=== PATIENT | male | born 1980 | race American Indian/Alaskan Native ===

== ENCOUNTER 2016-09-25 10:18 | Emergency (ER) | payer SELFPAY ==
[2016-09-25] MEDS ORDERED: DUONEB 0.5 MG-3 MG/3 ML SOLN IH ONE (12:15)
[2016-09-25] MEDS ORDERED: NACL 0.9% 1000 ML 1,000 ML IV ONE (12:16)
[2016-09-25] MEDS ORDERED: MAGNESIUM SULFATE 2GM/50ML 2 GM/50 ML BAG IV ONE (12:16)
--- NOTE | 2016-09-25 12:19 | Emergency Department Report ---
ED Asthma HPI - General Chief Complaint: Adult Asthma Stated Complaint: ASTHMA Time Seen by Provider: 09/25/16 12:10 Source: patient Mode of arrival: Stretcher Limitations: No Limitations - History of Present Illness Initial Comments: Patient is somewhat disinterested in providing much historical information. He lives in the lateral decubitus position with his eyes closed. Upon awakening he states he is still wheezing. He received 2 albuterol treatments and Solu- Medrol and route per jig worker. He does have some persistent wheezing. He denies chest pain. He states he's had some yellow productive cough. Patient states his last admission for asthma was within the last 2 years at this facility. MD Complaint: "asthma attack" -: unknown Severity: moderate Context: recent URI Associated Symptoms: productive cough Treatments Prior to Arrival: other (ran out of meds) - Related Data Current Asthma Therapy: none Previous Rx's Medication Instructions Recorded Last Taken Type amLODIPine [Norvasc] 5 mg PO DAILY #30 tab 11/08/13 06/30/15 10:00 Rx 5mg Apixaban [Eliquis] 10 mg PO BID 7 Days 07/08/15 Unknown Rx Insulin NPH/Regular [NovoLIN 70/30] 40 unit SUB-Q QDDIAB 30 Days 07/08/15 Unknown Rx Insulin NPH/Regular [NovoLIN 70/30] 40 unit SUB-Q QPMDIAB 30 Days 07/08/15 Unknown Rx predniSONE [Deltasone] 10 mg PO QDAY #4 tablet 07/08/15 Unknown Rx ALBUTEROL NEB's [Proventil 0.083% 1 neb IH Q4H PRN #60 nebu 09/25/16 Unknown Rx NEBS] Albuterol Sulfate [Ventolin HFA] 2 puff IH Q4H PRN #1 hfa.aer.ad 09/25/16 Unknown Rx Apixaban [Eliquis] 5 mg PO BID #42 tablet 09/25/16 Unknown Rx Azithromycin [Zithromax Z-DOUG] 250 mg PO DAILY #6 tablet 09/25/16 Unknown Rx predniSONE [Deltasone] 20 mg PO QDAY #6 tab 09/25/16 Unknown Rx Allergies Allergy/AdvReac Type Severity Reaction Status Date / Time No Known Allergies Allergy Unverified 11/07/13 16:14 ED Review of Systems ROS: Stated complaint: ASTHMA Other details as noted in HPI Constitutional: denies: chills, fever Eyes: denies: eye pain, eye discharge, vision change ENT: denies: ear pain, throat pain Respiratory: cough, shortness of breath, wheezing Cardiovascular: denies: chest pain, palpitations Endocrine: no symptoms reported Gastrointestinal: denies: abdominal pain, nausea, diarrhea Genitourinary: denies: urgency, dysuria Musculoskeletal: denies: back pain, joint swelling, arthralgia Skin: denies: rash, lesions Neurological: denies: headache, weakness, paresthesias Psychiatric: denies: anxiety, depression Hematological/Lymphatic: denies: easy bleeding, easy bruising ED Past Medical Hx - Past Medical History Hx Hypertension: Yes Hx Heart Attack/AMI: No Hx Congestive Heart Failure: No Hx Diabetes: Yes Hx Deep Vein Thrombosis: No Hx Asthma: Yes Hx COPD: No - Surgical History Hx Coronary Stent: No - Social History Smoking Status: Current Every Day Smoker Substance Use Type: None - Medications Home Medications: Home Medications Medication Instructions Recorded Confirmed Last Taken Type amLODIPine [Norvasc] 5 mg PO DAILY #30 tab 11/08/13 06/30/15 06/30/15 10:00 Rx 5mg Apixaban [Eliquis] 10 mg PO BID 7 Days 07/08/15 Unknown Rx Insulin NPH/Regular [NovoLIN 70/30] 40 unit SUB-Q QDDIAB 30 Days 07/08/15 Unknown Rx Insulin NPH/Regular [NovoLIN 70/30] 40 unit SUB-Q QPMDIAB 30 Days 07/08/1506/30 Unknown Rx predniSONE [Deltasone] 10 mg PO QDAY #4 tablet 07/08/15 Unknown Rx ALBUTEROL NEB's [Proventil 0.083% 1 neb IH Q4H PRN #60 nebu 09/25/16 Unknown Rx NEBS] Albuterol Sulfate [Ventolin HFA] 2 puff IH Q4H PRN #1 hfa.aer.ad 09/25/16 Unknown Rx Apixaban [Eliquis] 5 mg PO BID #42 tablet 09/25/16 Unknown Rx Azithromycin [Zithromax Z-DOUG] 250 mg PO DAILY #6 tablet 09/25/16 Unknown Rx predniSONE [Deltasone] 20 mg PO QDAY #6 tab 09/25/16 Unknown Rx ED Physical Exam - General Limitations: No Limitations General appearance: alert, in no apparent distress - Head Head exam: Present: atraumatic, normocephalic - Eye Eye exam: Present: normal appearance. Absent: scleral icterus - ENT ENT exam: Present: mucous membranes moist - Neck Neck exam: Present: normal inspection - Respiratory Respiratory exam: Present: wheezes (bilateral wheezing), other (pulse oximetry 93% on room air). Absent: respiratory distress, accessory muscle use - Cardiovascular Cardiovascular Exam: Present: regular rate, normal rhythm. Absent: systolic murmur, diastolic murmur, rubs, gallop - GI/Abdominal GI/Abdominal exam: Present: soft, normal bowel sounds. Absent: distended, tenderness, guarding, rebound - Rectal Rectal exam: Present: deferred - Extremities Exam Extremities exam: Present: normal inspection - Back Exam Back exam: Present: normal inspection - Neurological Exam Neurological exam: Present: oriented X3, CN II-XII intact. Absent: motor sensory deficit - Psychiatric Psychiatric exam: Present: flat affect. Absent: normal mood (lethargic) - Skin Skin exam: Present: warm, dry, intact, normal color. Absent: rash ED Course Vital Signs 09/25/16 09/25/16 09/25/16 11:13 12:24 12:40 Temperature 98.7 F Pulse Rate 91 H Pulse Rate [ 91 H 90 Anterior Bilateral Throughout] Respiratory 18 Rate Respiratory 16 18 Rate [Anterior Bilateral Throughout] Blood Pressure 152/95 O2 Sat by Pulse 97 Oximetry 09/25/16 13:11 Temperature Pulse Rate Pulse Rate [ Anterior Bilateral Throughout] Respiratory 18 Rate Respiratory Rate [Anterior Bilateral Throughout] Blood Pressure O2 Sat by Pulse Oximetry - Reevaluation(s) Reevaluation #1: Patient is resting comfortably. He states he is ready for discharge. He's had no leg pain or swelling. He does not complain of any chest pain. He was out of his asthma medicine and his asthma exacerbated. I don't think there is any indication to rule out pulmonary embolism here at this point. I asked the patient if he ever followed up on his pulmonary embolism in June 2015. It appears he did go to [facility]. He states he took Eloquis only for "some weeks". 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 I decided to give him a prescription for Eliquis. He should follow-up with the [facility] for evaluation of his current problem as well as how long he should remain on the Eliquis. 09/25/16 14:26 09/25/16 14:28 ED Medical Decision Making - Lab Data Result diagrams: 09/25/16 12:15 09/25/16 12:15 Laboratory Results - last 24 hr 09/25/16 09/25/16 12:15 12:15 WBC 11.1 H RBC 4.96 Hgb 14.1 Hct 42.6 MCV 86 MCH 28 MCHC 33 RDW 13.1 L Plt Count 148 Add Manual Diff Complete Total Counted 100 Band Neutrophils % 2.0 Lymphocytes % (Manual) 1.0 L Reactive Lymphs % (Man) 0 Monocytes % (Manual) 2.0 Eosinophils % (Manual) 0 Metamyelocytes % 0 Myelocytes % 0 Promyelocytes % 0 Blast Cells % 0 Nucleated RBC % Not Reportable Seg Neutrophils # Man 10.5 H Band Neutrophils # 0.2 Lymphocytes # (Manual) 0.1 L Abs React Lymphs (Man) 0.0 Monocytes # (Manual) 0.2 Eosinophils # (Manual) 0.0 Basophils # (Manual) 0.0 Metamyelocytes # 0.0 Myelocytes # 0.0 Promyelocytes # 0.0 Blast Cells # 0.0 WBC Morphology Not Reportable Hypersegmented Neuts Not Reportable Hyposegmented Neuts Not Reportable Hypogranular Neuts Not Reportable Smudge Cells Not Reportable Toxic Granulation Not Reportable Toxic Vacuolation Not Reportable Dohle Bodies Not Reportable Pelger-Huet Anomaly Not Reportable Molina Rods Not Reportable Platelet Estimate Cons Clumped Platelets Not Reportable Plt Clumps, EDTA Not Reportable Large Platelets Not Reportable Giant Platelets Rare Platelet Satelliting Not Reportable Plt Morphology Comment Not Reportable RBC Morphology Not Reportable Dimorphic RBCs Not Reportable Polychromasia Not Reportable Hypochromasia Not Reportable Poikilocytosis Not Reportable Anisocytosis Not Reportable Microcytosis Not Reportable Macrocytosis Not Reportable Spherocytes Not Reportable Pappenheimer Bodies Not Reportable Sickle Cells Not Reportable Target Cells Not Reportable Tear Drop Cells Not Reportable Ovalocytes Not Reportable Helmet Cells Not Reportable [place] Bodies Not Reportable [place] Rings Not Reportable [place] Cells Not Reportable Bite Cells Not Reportable Crenated Cell Not Reportable Elliptocytes Not Reportable Acanthocytes (Spur) Not Reportable Rouleaux Not Reportable Hemoglobin C Crystals Not Reportable Schistocytes Not Reportable Malaria parasites Not Reportable Amando Bodies Not Reportable Hem Pathologist Commnt No Sodium 136 L Potassium 3.5 L Chloride 100.3 Carbon Dioxide 20 L Anion Gap 19 BUN 9 Creatinine 0.9 Estimated GFR > 60 BUN/Creatinine Ratio 10.00 Glucose 195 H Calcium 8.7 - Radiology Data interpreted by me: CXR NAF Critical care attestation.: If time is entered above; I have spent that time in minutes in the direct care of this critically ill patient, excluding procedure time. ED Disposition Clinical Impression: History of pulmonary embolism Asthma exacerbation Qualifiers: Asthma severity: moderate persistent Qualified Code(s): J45.41 - Moderate persistent asthma with (acute) exacerbation Acute bronchitis Qualifiers: Bronchitis organism: unspecified organism Qualified Code(s): J20.9 - Acute bronchitis, unspecified Disposition: DISCHARGED TO HOME OR SELFCARE Is pt being admited?: No Does the pt Need Aspirin: No Condition: Stable Instructions: Acute Bronchitis (ED), Asthma (ED) Additional Instructions: As far as I can tell you should still be on the Eliquis. Therefore I am going to repeat prescribe it. I have encouraged the patient to probably follow up on his medical care with [facility]. He is discharged in stable condition. I'mhere on 20 mg of prednisone a day. This may elevate her blood sugar. He must check your blood sugar and treated appropriately with your insulin. You have complex medical problems that require close follow-up. I'll give you the information for [facility]. Return any acute change or problems Prescriptions: ALBUTEROL NEB's [Proventil 0.083% NEBS] 1 neb IH Q4H PRN #60 nebu PRN Reason: Wheezing Albuterol Sulfate [Ventolin HFA] 2 puff IH Q4H PRN #1 hfa.aer.ad PRN Reason: Wheezing Apixaban [Eliquis] 5 mg PO BID #42 tablet Azithromycin [Zithromax Z-DOUG] 250 mg PO DAILY #6 tablet predniSONE [Deltasone] 20 mg PO QDAY #6 tab Referrals: PRIMARY CARE, [Primary Care Provider] - 3-5 Days [facility] [Provider Group] - [place] Time of Disposition: 14:45
[2016-09-25 12:28] LABS: Hematocrit 42.6 % (35.5-45.6); Hemoglobin 14.1 gm/dl (11.8-15.2); Mean Corpuscular HGB Conc 33 % (32-34); Mean Corpuscular Hemoglobin 28 pg (28-32); Mean Corpuscular Volume 86 fl (84-94); Platelet Count 148 K/mm3 (140-440); Red Blood Count 4.96 M/mm3 (3.65-5.03); Red Cell Distribution Width 13.1 % (13.2-15.2); White Blood Count 11.1 K/mm3 (4.5-11.0)
[2016-09-25 12:39] LABS: Anion Gap 19 mmol/L; Blood Urea Nitrogen 9 mg/dL (9-20); Calcium 8.7 mg/dL (8.4-10.2); Carbon Dioxide 20 mmol/L (22-30); Chloride 100.3 mmol/L (98-107); Glucose 195 mg/dL (75-100); Potassium 3.5 mmol/L (3.6-5.0); Sodium 136 mmol/L (137-145)
--- NOTE | 2016-09-25 13:01 | XRay Report ---
Single view chest: Compared to 07/08/15. History: Cough. Findings: Normal cardiomediastinal silhouette. Trachea is midline. No consolidation, pneumothorax or pleural effusion. Impression: No acute cardiopulmonary findings.
[2016-09-25 13:41] LABS: Blastocytes % (Manual) 0 %
[2016-09-25 13:42] LABS: Diff Status Complete; Eosinophils % (Manual) 0 % (0.0-4.3)
[2016-09-25 13:43] LABS: Giant Platelets Rare; Platelet Estimate Cons
[2016-09-25 15:07] VITALS: BP 137/72
== END 2016-09-25 15:06 | disposition home or self-care (01) ==
LOC: ED 10:18
DX: J45.41 Moderate persistent asthma with (acute) exacerbation (principal); J20.9 Acute bronchitis, unspecified; I26.99 Other pulmonary embolism without acute cor pulmonale; I10 Essential (primary) hypertension; E11.9 Type 2 diabetes mellitus without complications; J45.909 Unspecified asthma, uncomplicated; F17.200 Nicotine dependence, unspecified, uncomplicated; Z79.4 Long term (current) use of insulin
CPT/HCPCS: 36415; 71010; 80048; 85007; 85025; 94640; 96365; 96372; 99284; J3475; J7030

== ENCOUNTER 2017-04-08 09:18 | Emergency (ER) | payer OTHER ==
[2017-04-08 10:03] LABS: Hematocrit 46.3 % (35.5-45.6); Hemoglobin 15.6 gm/dl (11.8-15.2); Mean Corpuscular HGB Conc 34 % (32-34); Mean Corpuscular Hemoglobin 29 pg (28-32); Mean Corpuscular Volume 85 fl (84-94); Platelet Count 187 K/mm3 (140-440); Red Blood Count 5.43 M/mm3 (3.65-5.03); Red Cell Distribution Width 12.9 % (13.2-15.2); White Blood Count 3.5 K/mm3 (4.5-11.0)
[2017-04-08 10:22] LABS: Anion Gap 22 mmol/L; BUN/Creatinine Ratio 13; Blood Urea Nitrogen 13 mg/dL (9-20); Carbon Dioxide 23 mmol/L (22-30); Chloride 94.9 mmol/L (98-107); Glucose 263 mg/dL (75-100); Potassium 4.6 mmol/L (3.6-5.0); Sodium 135 mmol/L (137-145)
[2017-04-08 11:02] LABS: Bilirubin,Urine NEG (Negative); Blood,Urine NEG (Negative); Ketones,Urine 80 mg/dL (Negative); Leukocyte Esterase,Urine NEG (Negative); Mucus,Urine 3+ /HPF; Nitrite,Urine NEG (Negative)
--- NOTE | 2017-04-08 11:07 | XRay Report ---
ROUTINE CHEST, TWO VIEWS: HISTORY: chest pain, shortness of breath. The trachea, heart, mediastinal contour, lung ibarra and bony thorax are unremarkable. IMPRESSION: Unremarkable chest x-ray.
[2017-04-08 12:29] LABS: Basophils % (Manual) 0 % (0.0-1.8); Blastocytes % (Manual) 0 %; Diff Status Complete; Platelet Estimate Consistent w Auto; RBC Morphology Normal
[2017-04-08] MEDS ORDERED: NACL 0.9% 1000 ML 1,000 ML IV ONE (16:18)
--- NOTE | 2017-04-08 16:53 | Emergency Department Report ---
HPI - General Chief Complaint: Dyspnea/Respdistress Time Seen by Provider: 04/08/17 16:16 - HPI HPI: 36-year-old male presents to the emergency department with a complaint of a one-day history of some nausea, vomiting and diarrhea. He also believes that his diabetes might be out of control, despite taking his Novolin 70/30, because every time he eats something he does get some nausea and/or mild abdominal discomfort. Patient says he is feeling much better at this point but has not taken anything for symptoms. Through triage complained of some chest discomfort but he thinks it is mostly related to his vomiting. However he does have a history of DVT and pulmonary embolism and has not been taking his Eloquis secondary to the cost. He does not have a primary care physician. No recent travel or sick contacts at home. He also complains of some increased urination and increased thirst but denies any fever, dysuria, back pain or diaphoresis. ED Past Medical Hx - Past Medical History Previous Medical History?: Yes Hx Hypertension: Yes Hx Heart Attack/AMI: No Hx Congestive Heart Failure: No Hx Diabetes: Yes Hx Deep Vein Thrombosis: Yes Hx Pulmonary Embolism: Yes Hx Asthma: Yes Hx COPD: No - Surgical History Past Surgical History?: No Hx Coronary Stent: No - Social History Smoking Status: Never Smoker Substance Use Type: None - Medications Home Medications: Home Medications Medication Instructions Recorded Confirmed Last Taken Type ALBUTEROL NEB's [Proventil 0.083% 1 neb IH Q4H PRN #60 nebu 09/25/16 04/08/17 Unknown Rx NEBS] Albuterol Sulfate [Ventolin HFA] 2 puff IH Q4H PRN #1 hfa.aer.ad 09/25/1604/08/17 Rx Insulin NPH/Regular [Novolin 70/30] 58 units SUB-Q QDDIAB 04/08/17 04/08/17 Unknown History Metoclopramide [Reglan] 10 mg PO TID PRN #12 tab 04/08/17 Unknown Rx ED Review of Systems ROS: Stated complaint: CHECK GLUCOSE,VOMITING AND DIARRHEA Other details as noted in HPI Comment: All other systems reviewed and negative Constitutional: denies: chills, fever Eyes: denies: eye pain, eye discharge, vision change ENT: denies: ear pain, throat pain Respiratory: denies: cough, shortness of breath, wheezing Endocrine: increased thirst, increased urine Gastrointestinal: abdominal pain, nausea, vomiting Genitourinary: frequency. denies: dysuria Musculoskeletal: denies: back pain, joint swelling, arthralgia Skin: denies: rash, lesions Neurological: denies: headache, weakness, paresthesias Physical Exam - Physical Exam Vital Signs: Vital Signs 04/08/17 09:39 Temperature 99.1 F Pulse Rate 102 H Respiratory 16 Rate Blood Pressure 136/90 O2 Sat by Pulse 94 Oximetry Physical Exam: GENERAL: The patient is well-developed well-nourished. HENT: Normocephalic. Atraumatic. Patient has moist mucous membranes. EYES: Extraocular motions are intact. Pupils equal reactive to light bilaterally. NECK: Supple. Trachea is midline. CHEST/LUNGS: Clear to auscultation. There is no respiratory distress noted. HEART/CARDIOVASCULAR: Regular. There is no tachycardia. There is no gallop rub or murmur. ABDOMEN: Abdomen is soft, nontender. Patient has normal bowel sounds. There is no abdominal distention. SKIN: There is no rash. There is no edema. There is no diaphoresis. NEURO: The patient is awake, alert, and oriented. The patient is cooperative. The patient has no focal neurologic deficits. The patient has normal speech. MUSCULOSKELETAL: There is no tenderness or deformity. There is no limitation range of motion. There is no evidence of acute injury. ED Course Vital Signs 04/08/17 09:39 Temperature 99.1 F Pulse Rate 102 H Respiratory 16 Rate Blood Pressure 136/90 O2 Sat by Pulse 94 Oximetry ED Medical Decision Making - Lab Data Result diagrams: 04/08/17 09:50 04/08/17 09:50 - EKG Data -: EKG Interpreted by Me EKG shows normal: sinus rhythm, axis, intervals, QRS complexes, ST-T waves (T- wave inversion to the lateral leads, there is some early repolarization) Rate: normal - EKG Data When compared to previous EKG there are: changes noted (previous EKG showed some LVH but it is hard to assess for T-wave inversions as the previous EKG had significant tachycardia) Interpretation: other (sinus rhythm, normal axis, normal rate, early repolarization, T wave to inferior leads) - Radiology Data Radiology results: image reviewed interpreted by me: Chest x-ray does not show any acute process. There are no pleural effusions, obvious pneumonia and there is no pneumothorax. - Medical Decision Making This patient presented with some nausea and vomiting and concern for hypoglycemia. The patient did have some hyperglycemia but he does not appear to be in diabetic ketoacidosis. Despite a slight elevation in the anion gap level there is no venous acidosis and his blood sugar was barely above 260 at any point during his ED stay. Since I seen the patient in the emergency department, he has not had any further nausea or vomiting and in fact is asking for something to eat. He also had complained of some chest discomfort and/or shortness breath earlier when he was vomiting but that has since resolved. However he had an EKG that did not show any ST elevation [place], ischemia or dysrhythmia. He had a negative troponin. He had a negative d-dimer. His vital signs are stable throughout his ED course including being afebrile. Probably these reasons the patient appears safe for discharge home. He did have 80 ketones in the urine showed dehydration. He was given some IV fluid resuscitation. He was able to keep down any food and/or water. We discussed dietary changes. He will continue with his insulin 70/30. He will follow up with a primary care physician. He will return to the ER with any worsening of symptoms or any acute distress. - Differential Diagnosis diabetic ketoacidosis, gastroenteritis, food poisoning Critical Care Time: No Critical care attestation.: If time is entered above; I have spent that time in minutes in the direct care of this critically ill patient, excluding procedure time. ED Disposition Clinical Impression: Dehydration, Hyperglycemia Nausea & vomiting Qualifiers: Vomiting type: unspecified Vomiting Intractability: non-intractable Qualified Code(s): R11.2 - Nausea with vomiting, unspecified Disposition: DC-01 TO HOME OR SELFCARE Is pt being admited?: No Condition: Stable Instructions: Dehydration (ED), Acute Nausea and Vomiting (ED), Diabetic Hyperglycemia (ED) Additional Instructions: Please follow-up with your primary care physician in the next few days. Increase your oral rehydration. Continue with your normal diabetes medications. Try and stay away from foods that are high in sugar, carbohydrates and starches to help with your diabetes. Keep a blood sugar log. Return to the emergency Department with any worsening of her symptoms, intractable vomiting, inability to stay hydrated, or any acute distress. Prescriptions: Metoclopramide [Reglan] 10 mg PO TID PRN #12 tab PRN Reason: Nausea Referrals: PRIMARY CAREMD [Primary Care Provider] - 3-5 Days AGUILAR MORENO MD [Staff Physician] - [facility] - [facility] Time of Disposition: 18:35
[2017-04-08 18:54] VITALS: BP 141/76
== END 2017-04-08 19:00 | disposition home or self-care (01) ==
LOC: ED 09:18
DX: E11.65 Type 2 diabetes mellitus with hyperglycemia (principal); E86.0 Dehydration; R11.2 Nausea with vomiting, unspecified; I10 Essential (primary) hypertension; I82.409 Acute embolism and thrombosis of unspecified deep veins of unspecified lower extremity; J45.909 Unspecified asthma, uncomplicated; I26.99 Other pulmonary embolism without acute cor pulmonale
CPT/HCPCS: 36415; 71020; 80048; 81001; 82805; 82962; 84484; 85007; 85025; 85379; 93005; 93010; 96360; 99284; J7030

== ENCOUNTER 2017-06-16 20:06 | Emergency (ER) | payer OTHER ==
[2017-06-16] MEDS ORDERED: ASPIRIN PO ONE (20:32)
[2017-06-16 21:16] LABS: Basophils % (Auto) 0.8 % (0.0-1.8); Eosinophils # (Auto) 0.3 K/mm3 (0.0-0.4); Eosinophils % (Auto) 5.3 % (0.0-4.3); Hematocrit 45.3 % (35.5-45.6); Lymphocytes # (Auto) 2.3 K/mm3 (1.2-5.4); Lymphocytes % (Auto) 47.3 % (13.4-35.0); Mean Corpuscular HGB Conc 33 % (32-34); Mean Corpuscular Hemoglobin 29 pg (28-32); Mean Corpuscular Volume 87 fl (84-94); Monocytes # (Auto) 0.5 K/mm3 (0.0-0.8); Monocytes % (Auto) 9.8 % (0.0-7.3); Platelet Count 169 K/mm3 (140-440)
[2017-06-16 21:32] LABS: BUN/Creatinine Ratio 14; Blood Urea Nitrogen 13 mg/dL (9-20); Calcium 9.3 mg/dL (8.4-10.2); Hemolysis Index 4
[2017-06-16 22:25] LABS: Bilirubin,Urine NEG (Negative); Blood,Urine NEG (Negative); Color,Urine Straw (Yellow); Nitrite,Urine NEG (Negative); Protein,Urine <15 mg/dL mg/dL (Negative); Urobilinogen,Urine < 2.0 mg/dL (<2.0); WBC,Urine < 1.0 /HPF (0.0-6.0)
[2017-06-17] MEDS ORDERED: PROVENTIL IH ONE ×2 (01:21→01:23)
--- NOTE | 2017-06-17 02:11 | XRay Report ---
FINAL REPORT EXAM: XR CHEST 1V AP HISTORY: chest pain COMPARISON: CT chest from June 2015. FINDINGS: Frontal view(s) of the chest obtained. Cardiac silhouette within normal limits. No gross consolidation or effusion. No pneumothorax. IMPRESSION: No grossly acute findings.
[2017-06-17] MEDS ORDERED: NACL 0.9% 1000 ML 1,000 ML IV ONE (03:14)
--- NOTE | 2017-06-17 06:40 | Emergency Department Report ---
ED Chest Pain HPI - General Chief Complaint: Chest Pain Stated Complaint: DM/CHEST PAIN Time Seen by Provider: 06/17/17 03:13 Source: patient Mode of arrival: Ambulatory Limitations: No Limitations - History of Present Illness Initial Comments: This is a 36-year-old male who presents to the emergency department from home last night with a complaint of some chest pain, right leg pain and elevated blood sugar. The patient is insulin-dependent diabetic and says he has been compliant with his medication but his blood sugar is still minimally 3 and 400s. The chest pain has been going on since Wednesday, 4 days ago , but currently as I am seeing him in the main emergency department he says that his chest pain has resolved. He has a past medical history of the previously mentioned diabetes, as well as asthma, hypertension and a previous pulmonary embolism. He is no longer on blood thinners. No recent travel, recent surgery or immobility. He did not take anything for her symptoms prior to presentation. Patient also states that he has been having some diarrhea, makes dry and productive cough, but denies any fever, back pain, diaphoresis. He does not have a primary care physician. He denies any tobacco or illicit drug use or abuse. Severity scale (0 -10): 9 - Related Data Home Medications Medication Instructions Recorded Confirmed Last Taken Insulin NPH/Regular [Novolin 70/30] 58 units SUB-Q QDDIAB 04/08/17 04/08/17 Unknown Previous Rx's Medication Instructions Recorded Last Taken Type ALBUTEROL NEB's [Proventil 0.083% 1 neb IH Q4H PRN #60 nebu 09/25/16 Unknown Rx NEBS] Albuterol Sulfate [Ventolin HFA] 2 puff IH Q4H PRN #1 hfa.aer.ad 09/25/16 Rx Metoclopramide [Reglan] 10 mg PO TID PRN #12 tab 04/08/17 Unknown Rx Allergies Allergy/AdvReac Type Severity Reaction Status Date / Time No Known Allergies Allergy Verified 06/16/17 20:29 Heart Score - HEART Score History: Slightly suspicious EKG: Non-specific Age: < 45 Risk factors: 1-2 risk factors Troponin: < normal limit HEART Score: 2 - Critical Actions Critical Actions: 0-3 pts:0.9-1.7%risk of adverse cardiac event.Candidate for discharge ED Review of Systems ROS: Stated complaint: DM/CHEST PAIN Other details as noted in HPI Comment: All other systems reviewed and negative Constitutional: denies: chills, fever Eyes: denies: eye pain, eye discharge, vision change ENT: denies: ear pain, throat pain Respiratory: cough. denies: shortness of breath Cardiovascular: chest pain. denies: palpitations Gastrointestinal: diarrhea. denies: abdominal pain Genitourinary: denies: urgency, dysuria Musculoskeletal: arthralgia, myalgia. denies: back pain Skin: denies: rash, lesions Neurological: denies: headache, weakness, paresthesias ED Past Medical Hx - Past Medical History Hx Hypertension: Yes Hx Heart Attack/AMI: No Hx Congestive Heart Failure: No Hx Diabetes: Yes Hx Deep Vein Thrombosis: No Hx Pulmonary Embolism: Yes Hx Asthma: Yes Hx COPD: No - Surgical History Hx Coronary Stent: No - Social History Smoking Status: Never Smoker Substance Use Type: None - Medications Home Medications: Home Medications Medication Instructions Recorded Confirmed Last Taken Type ALBUTEROL NEB's [Proventil 0.083% 1 neb IH Q4H PRN #60 nebu 09/25/16 04/08/17 Unknown Rx NEBS] Albuterol Sulfate [Ventolin HFA] 2 puff IH Q4H PRN #1 hfa.aer.ad 09/25/1604/08/17 Rx Insulin NPH/Regular [Novolin 70/30] 58 units SUB-Q QDDIAB 04/08/17 04/08/17 Unknown History Metoclopramide [Reglan] 10 mg PO TID PRN #12 tab 04/08/17 Unknown Rx ED Physical Exam - General Limitations: No Limitations - Other Other exam information: GENERAL: The patient is well-developed well-nourished. HENT: Normocephalic. Atraumatic. Patient has moist mucous membranes. EYES: Extraocular motions are intact. Pupils equal reactive to light bilaterally. NECK: Supple. Trachea is midline. CHEST/LUNGS: Clear to auscultation. There is no respiratory distress noted. HEART/CARDIOVASCULAR: Regular. There is no tachycardia. There is no murmur. ABDOMEN: Abdomen is soft, nontender. Patient has normal bowel sounds. There is no abdominal distention. SKIN: Skin is warm and dry. NEURO: The patient is awake, alert, and oriented. The patient is cooperative. The patient has no focal neurologic deficits. The patient has normal speech. MUSCULOSKELETAL: There is no tenderness or deformity. There is no limitation range of motion. There is no evidence of acute injury. ED Course Vital Signs 06/16/17 06/17/17 06/17/17 20:29 00:45 00:51 Temperature 98.8 F 98.6 F Pulse Rate 80 62 76 Pulse Rate [ Posterior Bilateral Throughout] Respiratory 18 7 L 16 Rate Respiratory Rate [Posterior Bilateral Throughout] Blood Pressure 146/93 116/79 Blood Pressure 141/90 [Right] O2 Sat by Pulse 99 99 98 Oximetry 06/17/17 06/17/17 06/17/17 01:00 01:15 01:27 Temperature Pulse Rate 65 59 L Pulse Rate [ 66 Posterior Bilateral Throughout] Respiratory 8 L 14 Rate Respiratory 20 Rate [Posterior Bilateral Throughout] Blood Pressure 124/78 121/84 Blood Pressure [Right] O2 Sat by Pulse 100 Oximetry 06/17/17 06/17/17 06/17/17 01:30 01:42 01:45 Temperature Pulse Rate 65 70 Pulse Rate [ 68 Posterior Bilateral Throughout] Respiratory 12 16 Rate Respiratory 20 Rate [Posterior Bilateral Throughout] Blood Pressure 125/84 126/61 Blood Pressure [Right] O2 Sat by Pulse 100 98 Oximetry 06/17/17 06/17/17 06/17/17 02:00 02:15 07:50 Temperature 98.6 F Pulse Rate 68 76 71 Pulse Rate [ Posterior Bilateral Throughout] Respiratory 10 L 11 L 16 Rate Respiratory Rate [Posterior Bilateral Throughout] Blood Pressure 126/61 120/71 Blood Pressure 124/77 [Right] O2 Sat by Pulse 98 100 Oximetry PETROS score - Petros Score Age > 65: (0) No Aspirin use within the Past 7 Days: (0) No 3 or more CAD Risk Factors: (0) No 2 or more Angina events in past 24 hrs: (0) No Known CAD with more than 50% Stenosis: (0) No Elevated Cardiac Markers: (0) No ST Deviation Greater than 0.5mm: (0) No PETROS Score: 0 ED Medical Decision Making - Lab Data Result diagrams: 06/16/17 20:44 06/16/17 20:44 - EKG Data -: EKG Interpreted by [place] EKG shows normal: sinus rhythm, axis, intervals, QRS complexes, ST-T waves ( early repolarization) Rate: normal - EKG Data When compared to previous EKG there are: previous EKG unavailable Interpretation: other (sinus rhythm, normal axis, early repolarization) - Radiology Data Radiology results: report reviewed, image reviewed interpreted by me: Chest x-ray does not show any acute process. There are no pleural effusions, obvious pneumonia and there is no pneumothorax. Right lower extremity venous Doppler is negative for DVT. - Medical Decision Making Patient presents with hyperglycemia and some intermittent chest pain and right leg discomfort. The chest pain has resolved at the time I have seen him in the main emergency department. EKG does not show any signs of ST elevation ME. Negative troponins 3 and a negative d-dimer. Despite the negative d-dimer, I got a right lower extremity venous Doppler which was negative for any DVT. His blood sugar was elevated upon arrival but came down to about 200 without any intervention. He does not appear to be in diabetic ketoacidosis or any other complications of his diabetes. He admits that there are multiple dietary and lifestyle changes he can make to help with his elevated blood sugar. He was given referrals for primary care and cardiology and will return to the ER with any worsening of symptoms or any acute distress. - Differential Diagnosis DKA, HHNK, DVT, PE, ME, Costochondritis Critical Care Time: No Critical care attestation.: If time is entered above; I have spent that time in minutes in the direct care of this critically ill patient, excluding procedure time. ED Disposition Clinical Impression: Right leg pain, Hyperglycemia Chest pain Qualifiers: Chest pain type: unspecified Qualified Code(s): R07.9 - Chest pain, unspecified Disposition: DC-01 TO HOME OR SELFCARE Is pt being admited?: No Condition: Stable Instructions: Chest Pain (ED), Diabetic Hyperglycemia (ED) Additional Instructions: Please follow up with a primary care physician in the next few days. I have given you a referral for a local inspector [employer]sembl[employer], Dr. Almaraz, in case she needs follow-up regarding your chest pain that has resolved. Continue with your insulin regimen. Try and stay with foods are high in sugar, carbohydrates and starches to help with your blood sugar. Keep a blood sugar log. Return to the emergency Department with any worsening of your symptoms or any acute distress. Referrals: PRIMARY CARE, [Primary Care Provider] - 3-5 Days AMIRA ALMARAZ MD [Staff Physician] - 3-5 Days ELENA BENAVIDEZ MD [Staff Physician] - 3-5 Days [facility] [Outside] - 3-5 Days Forms: Work/School Release Form(ED)
[2017-06-17 07:54] VITALS: BP 124/77
== END 2017-06-17 09:57 | disposition home or self-care (01) ==
LOC: ED 20:06
DX: E11.65 Type 2 diabetes mellitus with hyperglycemia (principal); E07.9 Disorder of thyroid, unspecified; M79.604 Pain in right leg; I10 Essential (primary) hypertension; J45.909 Unspecified asthma, uncomplicated
CPT/HCPCS: 36415; 71045; 80048; 81001; 82962; 84484; 85025; 85379; 93005; 93010; 93971; 94640; 96361; 96374; 99285; J7030; J1815

== ENCOUNTER 2017-10-10 23:09 | Inpatient (IN) | payer SELFPAY ==
[2017-10-10] MEDS ORDERED: ATROVENT IH ONE (23:15)
[2017-10-10] MEDS ORDERED: PROVENTIL IH ONE (23:15)
[2017-10-11 00:45] LABS: Basophils % (Auto) 0.5 % (0.0-1.8); Eosinophils # (Auto) 0.2 K/mm3 (0.0-0.4); Eosinophils % (Auto) 1.6 % (0.0-4.3); Hematocrit 42.2 % (35.5-45.6); Lymphocytes # (Auto) 0.9 K/mm3 (1.2-5.4); Lymphocytes % (Auto) 10.1 % (13.4-35.0); Mean Corpuscular HGB Conc 33 % (32-34); Mean Corpuscular Hemoglobin 29 pg (28-32); Mean Corpuscular Volume 87 fl (84-94); Monocytes # (Auto) 0.5 K/mm3 (0.0-0.8); Monocytes % (Auto) 5.1 % (0.0-7.3); Platelet Count 158 K/mm3 (140-440); Red Blood Count 4.88 M/mm3 (3.65-5.03); Red Cell Distribution Width 12.9 % (13.2-15.2)
--- NOTE | 2017-10-11 00:49 | Emergency Department Report ---
ED Asthma HPI - General Chief Complaint: Dyspnea/Respdistress Stated Complaint: ANETA Time Seen by Provider: 10/10/17 23:15 Source: patient, old records reviewed (pt here in jun for cp, leg pain, neg ddimer and dvt study at that time) Mode of arrival: Stretcher Limitations: No Limitations - History of Present Illness Initial Comments: 37-year-old male the past medical history diabetes, asthma, and previous PE presents to the hospital with acute asthma exacerbation. Patient was found to be in respiratory distress at the scene by EMS. Patient received a total of albuterol 15 mg, magnesium 2 g, and solumedrol 125 mg with some improvement. Patient presents to the hospital still with audible wheezing, accessory muscle use, difficulty speaking and respiratory distress. He complains of a cough productive of yellow sputum and chest tightness. Positive history of pulmonary embolism noted but patient states his symptoms feel more like his asthma. No fever, calf tenderness or edema reported. O2 sat 93% room air upon arrival - Related Data Home Medications Medication Instructions Recorded Confirmed Last Taken Insulin NPH/Regular [Novolin 70/30] 58 units SUB-Q QDDIAB 04/08/17 04/08/17 Unknown Previous Rx's Medication Instructions Recorded Last Taken Type ALBUTEROL NEB's [Proventil 0.083% 1 neb IH Q4H PRN #60 nebu 09/25/16 Unknown Rx NEBS] Albuterol Sulfate [Ventolin HFA] 2 puff IH Q4H PRN #1 hfa.aer.ad 09/25/16 Rx Metoclopramide [Reglan] 10 mg PO TID PRN #12 tab 04/08/17 Unknown Rx Allergies Allergy/AdvReac Type Severity Reaction Status Date / Time No Known Allergies Allergy Verified 06/16/17 20:29 ED Review of Systems ROS: Stated complaint: ANETA Other details as noted in HPI Comment: All other systems reviewed and negative ED Past Medical Hx - Past Medical History Previous Medical History?: Yes Hx Hypertension: Yes Hx Heart Attack/AMI: No Hx Congestive Heart Failure: No Hx Diabetes: Yes Hx Deep Vein Thrombosis: No Hx Pulmonary Embolism: Yes Hx Asthma: Yes Hx COPD: No - Surgical History Past Surgical History?: No Hx Coronary Stent: No - Social History Smoking Status: Never Smoker Substance Use Type: None - Medications Home Medications: Home Medications Medication Instructions Recorded Confirmed Last Taken Type ALBUTEROL NEB's [Proventil 0.083% 1 neb IH Q4H PRN #60 nebu 09/25/16 04/08/17 Unknown Rx NEBS] Albuterol Sulfate [Ventolin HFA] 2 puff IH Q4H PRN #1 hfa.aer.ad 09/25/1604/08/17 Rx Insulin NPH/Regular [Novolin 70/30] 58 units SUB-Q QDDIAB 04/08/17 04/08/17 Unknown History Metoclopramide [Reglan] 10 mg PO TID PRN #12 tab 04/08/17 Unknown Rx ED Physical Exam - General Limitations: No Limitations - Other Other exam information: General: Positive respiratory distress upon arrival Head exam: Atraumatic, normocephalic Eyes exam: Normal appearance ENT: Moist mucous membrane, normal oropharynx Neck exam: Normal inspection, full range of motion, no meningismus nontender Respiratory exam: Audible wheezing expiratory and inspiratory, accessory muscle use, difficulty speaking Cardiovascular: Tachycardic regular rhythm Abdomen: Soft, nondistended, and nontender, with normal bowel sounds, no rebound, or guarding Extremity: Full range of motion normal inspection no deformity, no calf tenderness or edema Back: Normal Inspection, full range of motion, no tenderness Neurologic: Alert, oriented x3, cranial nerves intact, no motor or sensory deficit Psychiatric: normal affect, normal mood Skin: Warm, dry, intact ED Course Vital Signs 10/10/17 10/10/17 10/10/17 23:04 23:12 23:15 Temperature 98.4 F Pulse Rate 125 H 120 H Pulse Rate [ Anterior Bilateral Throughout] Respiratory 24 24 Rate Respiratory Rate [Anterior Bilateral Throughout] Blood Pressure 172/95 143/96 O2 Sat by Pulse 93 94 99 Oximetry 10/10/17 10/10/17 10/10/17 23:16 23:20 23:30 Temperature Pulse Rate 121 H 121 H Pulse Rate [ 120 H Anterior Bilateral Throughout] Respiratory 25 H 20 Rate Respiratory 24 Rate [Anterior Bilateral Throughout] Blood Pressure 172/95 143/96 O2 Sat by Pulse 98 Oximetry 10/10/17 10/11/17 10/11/17 23:45 00:00 00:15 Temperature Pulse Rate 129 H 122 H 123 H Pulse Rate [ Anterior Bilateral Throughout] Respiratory 22 19 19 Rate Respiratory Rate [Anterior Bilateral Throughout] Blood Pressure 154/93 154/93 161/100 O2 Sat by Pulse 94 99 98 Oximetry 10/11/17 10/11/17 00:30 00:45 Temperature Pulse Rate 115 H 117 H Pulse Rate [ Anterior Bilateral Throughout] Respiratory 18 20 Rate Respiratory Rate [Anterior Bilateral Throughout] Blood Pressure 143/96 161/86 O2 Sat by Pulse 97 94 Oximetry ED Medical Decision Making - Lab Data Result diagrams: 10/11/17 00:12 10/11/17 00:12 Lab Results 10/11/17 10/11/17 Range/Units 00:12 00:12 WBC 9.4 (4.5-11.0) K/mm3 RBC 4.88 (3.65-5.03) M/mm3 Hgb 14.0 (11.8-15.2) gm/dl Hct 42.2 (35.5-45.6) % MCV 87 (84-94) fl MCH 29 (28-32) pg MCHC 33 (32-34) % RDW 12.9 L (13.2-15.2) % Plt Count 158 (140-440) K/mm3 Lymph % (Auto) 10.1 L (13.4-35.0) % [place] % (Auto) 5.1 (0.0-7.3) % Eos % (Auto) 1.6 (0.0-4.3) % Baso % (Auto) 0.5 (0.0-1.8) % Lymph # 0.9 L (1.2-5.4) K/mm3 [place] # 0.5 (0.0-0.8) K/mm3 Eos # 0.2 (0.0-0.4) K/mm3 Baso # 0.0 (0.0-0.1) K/mm3 Seg Neutrophils % 82.7 H (40.0-70.0) % Seg Neutrophils # 7.8 H (1.8-7.7) K/mm3 Sodium 142 (137-145) mmol/L Potassium 3.3 L (3.6-5.0) mmol/L Chloride 104.6 (98-107) mmol/L Carbon Dioxide 23 (22-30) mmol/L Anion Gap 18 mmol/L BUN 13 (9-20) mg/dL Creatinine 0.9 (0.8-1.5) mg/dL Estimated GFR > 60 ml/min BUN/Creatinine Ratio 14 % Glucose 243 H (75-100) mg/dL Calcium 8.7 (8.4-10.2) mg/dL - EKG Data -: EKG Interpreted by Me EKG shows normal: sinus rhythm, axis (qrs 87), QRS complexes (qrsd 78), ST-T waves (no stemi/ t inv) Rate: tachycardia (107) - EKG Data When compared to previous EKG there are: no significant change (04/08/17) - Radiology Data Radiology results: report reviewed read by radiology cxr: naf - Medical Decision Making Respiratory distress Likely secondary to acute asthma exacerbation given his presentation Improving with BiPAP support, Nebs, steroids, and magnesium Given history of PE d-dimer has been ordered and pending at dispo (patient presents to the ED in June and d-dimer was negative at that time) Pt will be admitted to the hospitalist hr improving with improved respiratory status - Differential Diagnosis asthma, pe, pneumonia, chf Critical Care Time: No Critical care attestation.: If time is entered above; I have spent that time in minutes in the direct care of this critically ill patient, excluding procedure time. ED Disposition Clinical Impression: Status asthmaticus, Diabetes, Tachycardia Disposition: DC-09 OP ADMIT IP TO THIS HOSP Is pt being admited?: Yes Condition: Stable Time of Disposition: 01:05 (Dr Argueta/hosp)
[2017-10-11 01:02] LABS: BUN/Creatinine Ratio 14; Blood Urea Nitrogen 13 mg/dL (9-20); Calcium 8.7 mg/dL (8.4-10.2); Hemolysis Index 0
[2017-10-11] MEDS ORDERED: TYLENOL PO PRN (02:01)
[2017-10-11] MEDS ORDERED: ZOFRAN IV PRN (02:01)
[2017-10-11] MEDS ORDERED: K-DUR PO ONE ×2 (02:01→02:19)
[2017-10-11] MEDS ORDERED: SODIUM CHLORIDE FLUSH SYRINGE 10 ML IV PRN (02:01)
--- NOTE | 2017-10-11 02:04 | History and Physical Report ---
History of Present Illness Date of examination: 10/11/17 History of present illness: 37-year-old man with a history of hypertension, diabetes, asthma, remote history of pulmonary emboli, see emergency room with complaints of cough productive of green-yellow phlegm, shortness of breath. He has been using his nebulizer treatments at home without any improvement. He also complained of pain in his chest which she described as sharp pain, constant, intensity 4/10, no radiation, I cannot identify any exacerbating or relieving factors. Denies nausea vomiting, diaphoresis or palpitation. Patient was in respiratory distress in the emergency room, he was given magnesium, steroids, placed on BiPAP Review of systems Constitutional: no weight loss, chills Ears, eyes, nose, mouth and throat: no nasal congestion, no nasal discharge, no sinus pressure, no vision change, no red eye. Neck: No neck pain or rigidity. Cardiovascular: no palpitations Respiratory: + cough, shortness of breath Gastrointestinal: no abdominal pain, hematochezia Genitourinary : no dysuria, frequency , no hematuria Musculoskeletal: no joint swelling or muscle ache Integumentary: no rash, no pruritis Neurological: no parathesias, no numbness, no focal weakness Endocrine: no cold or heat intolerance, no polyuria or polydipsia Hematologic/Lymphatic: no easy bruising, no easy bleeding, no gland swelling Allergic/Immunologic: no urticaria, no angioedema. PAST MEDICAL HISTORY:hypertension, diabetes, asthma, remote history of pulmonary emboli PAST SURGICAL HISTORY: None SOCIAL HISTORY: Denies tobacco, alcohol, drugs FAMILY HISTORY: Hypertension Medications and Allergies Allergies Allergy/AdvReac Type Severity Reaction Status Date / Time No Known Allergies Allergy Verified 06/16/17 20:29 Home Medications Medication Instructions Recorded Confirmed Last Taken Type ALBUTEROL NEB's [Proventil 0.083% 1 neb IH Q4H PRN #60 nebu 09/25/16 10/11/17 1 Day Ago Rx NEBS] ~10/10/17 Albuterol Sulfate [Ventolin HFA] 2 puff IH Q4H PRN #1 hfa.aer.ad 09/25/1604/08/17 Rx Insulin NPH/Regular [Novolin 70/30] 32 units SUB-Q QAM 04/08/17 10/11/17 Unknown History Insulin NPH Hum/Reg Insulin Hm 26 unit SQ QPM 10/11/17 10/11/17 Unknown History [HumuLIN 70-30 Vial] Active Meds: Active Medications Acetaminophen (Tylenol) 650 mg PO Q4H PRN PRN Reason: Pain MILD(1-3)/Fever >100.5/VAZQUEZ Albuterol/Ipratropium (Duoneb *Not For Prn Use*) 1 ampul IH Q6HRT [place] Enoxaparin Sodium (Lovenox) 30 mg SUB-Q QDAY [place] Methylprednisolone Sodium Succinate (Solu-Medrol) 125 mg IV Q6H [place] Ondansetron HCl (Zofran) 4 mg IV Q8H PRN PRN Reason: Nausea And Vomiting Potassium Chloride (K-Dur) 30 meq PO ONCE ONE Stop: 10/11/17 02:02 Sodium Chloride (Sodium Chloride Flush Syringe 10 Ml) 10 ml IV BID [place] Sodium Chloride (Sodium Chloride Flush Syringe 10 Ml) 10 ml IV PRN PRN PRN Reason: LINE FLUSH Exam - Physical Exam Narrative exam: Gen. appearance: Patient lying in bed, no apparent distress on BiPAP HEENT: Normocephalic, atraumatic, pupils equally round and reactive to light, extraocular movement intact, and no sclericterus,. No JVD or thyromegaly or nodule,neck supple, no carotid bruit ,mucous membranes moist, no exudate or erythema Heart: S1, S2, regular rate and rhythm Lungs: Diffuse bilaterally, decreased hearing trace breathing comfortable Abdomen: Positive bowel sounds, nontender, nondistended, no organomegaly Extremity: No edema, cyanosis, clubbing Skin: No rash, nodules, warm, dry Neuro: Oriented 3, cranial nerves II-12 intact, speech is fluent, motor and sensory intact - Constitutional Vitals: Temp Pulse Resp BP Pulse Ox 98.4 F 117 H 20 161/86 94 10/10/17 23:12 10/11/17 00:45 10/11/17 00:45 10/11/17 00:45 10/11/17 00:45 Results - Labs CBC & Chem 7: 10/11/17 00:12 10/11/17 00:12 Labs: Abnormal lab results 10/11/17 10/11/17 Range/Units 00:12 00:12 RDW 12.9 L (13.2-15.2) % Lymph % (Auto) 10.1 L (13.4-35.0) % Lymph # 0.9 L (1.2-5.4) K/mm3 Seg Neutrophils % 82.7 H (40.0-70.0) % Seg Neutrophils # 7.8 H (1.8-7.7) K/mm3 Potassium 3.3 L (3.6-5.0) mmol/L Glucose 243 H (75-100) mg/dL - Imaging and Cardiology EKG: image reviewed Assessment and Plan Assessment Acute respiratory distress Asthma exacerbation with acute bronchitis Diabetes Hypertension Plan Admit to medicine Start high-dose steroids, nebulizer treatments, obtain ABG Continue BiPAP, check fingersticks initiate insulin signs scale Continue appropriate outpatient medications DVT prophylaxis
[2017-10-11] MEDS ORDERED: DUONEB *Not for PRN Use IH ONE (02:32)
[2017-10-11] MEDS: DUONEB *Not for PRN Use IH SCH ×4 (02:34→19:45)
[2017-10-11] MEDS ORDERED: D50W (25GM) Syringe IV PRN (04:39)
[2017-10-11] MEDS: ZITHROMAX 500 MG in NACL 0.9% 250ML 250 ML IV SCH (05:41)
[2017-10-11] MEDS: HumaLOG SUB-Q SCH ×4 (10:11→23:23)
[2017-10-11] MEDS: LOVENOX SUB-Q SCH (10:12)
[2017-10-11] MEDS: SODIUM CHLORIDE FLUSH SYRINGE 10 ML IV SCH ×2 (10:13→23:24)
[2017-10-11] MEDS ORDERED: PROVENTIL IH PRN (11:07)
--- NOTE | 2017-10-11 14:31 | XRay Report ---
FINAL REPORT EXAM: XRAY CHEST SINGLE VIEW HISTORY: sob, asthma, cough COMPARISON: Chest x-ray from June 2017. FINDINGS: Frontal view(s) of the chest obtained. Cardiac silhouette within normal limits. No gross consolidation or effusion. No pneumothorax. IMPRESSION: No grossly acute findings.
--- NOTE | 2017-10-11 17:10 | Event Note ---
Date: 10/11/17 Patient seen and evaluated Doing better Cont Bronchodilators steroids and Abx
[2017-10-12] MEDS: DUONEB *Not for PRN Use IH SCH ×3 (01:45→13:57)
[2017-10-12 05:22] LABS: Basophils % (Auto) 0.1 % (0.0-1.8); Hematocrit 43.1 % (35.5-45.6); Hemoglobin 14.4 gm/dl (11.8-15.2); Lymphocytes # (Auto) 0.8 K/mm3 (1.2-5.4); Mean Corpuscular HGB Conc 34 % (32-34); Mean Corpuscular Hemoglobin 29 pg (28-32); Mean Corpuscular Volume 85 fl (84-94); Monocytes # (Auto) 0.8 K/mm3 (0.0-0.8); Platelet Count 175 K/mm3 (140-440); Red Blood Count 5.05 M/mm3 (3.65-5.03); Red Cell Distribution Width 13.3 % (13.2-15.2)
[2017-10-12] MEDS: ZITHROMAX 500 MG in NACL 0.9% 250ML 250 ML IV SCH (05:38)
[2017-10-12 05:51] LABS: BUN/Creatinine Ratio 29; Blood Urea Nitrogen 20 mg/dL (9-20); Calcium 9.7 mg/dL (8.4-10.2); Hemolysis Index 6
[2017-10-12 08:01] VITALS: BP 139/80
[2017-10-12] MEDS: HumaLOG SUB-Q SCH ×2 (09:00→14:04)
[2017-10-12] MEDS: LOVENOX SUB-Q SCH (09:09)
[2017-10-12] MEDS: SODIUM CHLORIDE FLUSH SYRINGE 10 ML IV SCH (09:10)
--- NOTE | 2017-10-12 15:21 | Discharge Summary ---
Providers - Providers Date of Admission: 10/11/17 02:01 Date of discharge: 10/12/17 Attending physician: ALFONSO MAURICIO Primary care physician: TECHNICAL HE[employer]CARE CONSULTANT Hospitalization Condition: Stable Hospital course: Patient is 37 yo man with a h/o asthma, hypertension, remote PE and DM who pw sob. He was admitted on Bipap. pCXR reported no acute findings. 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 He voiced understanding but refuses to take my advise because he has bills and must work. -Acute asthma exacerbation with status asthimaticus poa, requiring bipap, patient was close to being intubated: will continue steroid and nebs -DM: ada, ssi -Hypertension: low salt diet, antihypertensives. Disposition: DC-07 LEFT AGAINST MED ADVICE Time spent for discharge: 35 minutes Core Measure Documentation - Palliative Care Palliative Care/ Comfort Measures: Not Applicable - Core Measures Any of the following diagnoses?: none - VTE Discharge Requirements Deep Vein Thrombosis/Pulmonary Embolism Present on Admission: No Has pt received <5 days of overlap therapy or INR<2.0: No Anticoagulant overlap therapy prescribed at discharge: No Contraindication No Overlap Therapy order at DC: Not Indicated Exam - Physical Exam Narrative exam: GEN: WDWN,ill appearing, mild increase accessory muscles, Awake, Alert, Orientated x 3 HEENT: NCAT, EOMI, PERRL, OP Clear NECK: supple, no adenopathy, no thyromegaly, no JVD CVS/HEART: Regular tachycardia, normal S1S2, pulses present bilaterally CHEST/LUNGS: coarse bs bilateral, rhonchi bilateral, Symmetrical chest expansion , reduced air entry bilaterally GI/Abdomen: soft, NTND, good bowel sounds, no guarding or rebound /Bladder: no suprapubic tenderness, no CVA or paraspinal tenderness EXT/Skin: no c/c/e, no obvious rash, multiple facial tattoos MSK: FROM x 4 Neuro: CN 2-12 grossly intact, no new focal deficits Psych: anxious - Constitutional Vitals: Temp Pulse Resp BP Pulse Ox 97.8 F 103 H 20 139/80 98 10/12/17 07:55 10/12/17 14:12 10/12/17 14:12 10/12/17 07:55 10/12/17 07:55 Plan Activity: other (no strenous activity until cleared by pcp) Diet: low salt, diabetic Special Instructions: record blood sugar diary (three times a day with meals) Follow up with: NATHANAEL DENNIS MD [Referring] - 7 Days [facility] [Provider Group] - 7 Days Prescriptions: ALBUTEROL Inhaler [ProAir HFA Inhaler] 2 puff IH QID PRN #1 unit PRN Reason: Shortness Of Breath Amoxicillin/Potassium Clav [Augmentin 875-125 Tablet] 1 each PO BID #14 tablet Budesonide/Formoterol Fumarate [Symbicort 160-4.5 Mcg Inhaler] 1 dose IH BID #1 hfa.aer.ad methylPREDNISolone [Medrol Dose Carlos Enrique] 1 dose PO DAILY #1 pack
== END 2017-10-12 15:20 | disposition left against medical advice (07) | DRG 189 ==
LOC: ED 23:09 → 3A 10-11 02:01
PROVIDERS: ADMIT Internal Medicine; ATTEND Internal Medicine
PROC: 5A09357 Assistance with Respiratory Ventilation, Less than 24 Consecutive Hours, Continuous Positive Airway Pressure (ICD-10-PCS; principal; 2017-10-10)
PROC: 5A09357 Assistance with Respiratory Ventilation, Less than 24 Consecutive Hours, Continuous Positive Airway Pressure (ICD-10-PCS; 2017-10-11)
PROC: 4A03XR1 Measurement of Arterial Saturation, Peripheral, External Approach (ICD-10-PCS; 2017-10-11)
PROC: 5A09357 Assistance with Respiratory Ventilation, Less than 24 Consecutive Hours, Continuous Positive Airway Pressure (ICD-10-PCS; 2017-10-12)
DX: J96.01 Acute respiratory failure with hypoxia (principal); J45.901 Unspecified asthma with (acute) exacerbation; J45.902 Unspecified asthma with status asthmaticus; I10 Essential (primary) hypertension; Z53.21 Procedure and treatment not carried out due to patient leaving prior to being seen by health care provider; J20.9 Acute bronchitis, unspecified; E11.9 Type 2 diabetes mellitus without complications; Z86.711 Personal history of pulmonary embolism; Z79.4 Long term (current) use of insulin; Z79.899 Other long term (current) drug therapy; Z82.49 Family history of ischemic heart disease and other diseases of the circulatory system; Z71.89 Other specified counseling
CPT/HCPCS: 36415; 71045; 80048; 82803; 82962; 85025; 85379; 93005; 93010; 94640; 94660; J0456; J1650; J1815; J2930; J7050